=== PATIENT | female | born 1990 | race Caucasian/White ===

== ENCOUNTER 2024-03-06 20:31 | Emergency (ER) | payer OTHER ==
[~2024-03-06] VITALS: Ht 172.7 cm; Wt 77.3 kg
[2024-03-06] MEDS ORDERED: Orphenadrine 60 MG/2ML AMP IM ONE (21:00)
[2024-03-06] MEDS ORDERED: PREDNISONE20 MG PO (21:51)
[2024-03-06] MEDS ORDERED: AMOXICILLIN AND1 TA2 PO (21:51)
[2024-03-06] MEDS ORDERED: ZANAFLEX4 M1 PO (21:51)
[2024-03-06] MEDS ORDERED: predniSONE 20 MG TAB PO ONE (22:00)
[2024-03-06 22:07] VITALS: BP 115/82
== END 2024-03-06 22:08 | disposition home or self-care (01) ==
LOC: ED 20:31
DX: M54.2 Cervicalgia (principal); J32.9 Chronic sinusitis, unspecified
CPT/HCPCS: J2360; J7512